=== PATIENT | female | born 1980 | race Caucasian/White ===

== ENCOUNTER → 2018-09-28 | Outpatient (CLI) | payer BC ==
[~2018-09-28] MED LIST: ACYCLOVIR 200200 MG PO; CIPROFLOXACIN500 M1 PO; FLOMAX0.4 MG PO; HUMIRA20 MG/0.4 SQ; HYDROCODON-ACE1 EAC7 PO; PREDNISONE50 MG PO; ZOFRAN4 MG PO
--- NOTE | 2018-09-28 18:08 | 2DMMODE ---
[place] [address] 2 D/M-MODE ECHOCARDIOGRAM Name: LIT DAILY Room: [facility]#: [id number] Admission: 09/28/18 Attend Phys: Margaux Gonzáles MD Discharge: Date of : 76 Date of Service: 09/28/18 1807 Report #: [id number] THIS REPORT FOR: //name// APPROVED REPORT Study performed: 09/28/2018 15:55:50 EXAM: Comprehensive 2D, Doppler, and color-flow Echocardiogram Patient Location: Out-Patient Status: routine BSA: 1.72 HR: 85 bpm BP: 120/70 mmHg Other Information Study Quality: Excellent Indications Peripheral Edema 2D Dimensions IVSd: 9.67 (7-11mm) LVOT Diam: 20.39 (18-24mm) LVDd: 49.36 mm PWd: 8.63 (7-11mm) Ascending Ao: 29.84 (22-36mm) LVDs: 34.58 (25-40mm) Aortic Root: 25.67 mm Volumes Left Atrial Volume (Systole) LA ESV Index: 17.00 mL/m2 Aortic Valve AoV Peak Shade.: 1.25 m/s AO Peak Gr.: 6.22 mmHg LVOT Max P.60 mmHg AO Mean Gr.: 3.45 mmHg LVOT Mean P.36 mmHg LVOT Max V: 0.81 m/s AO V2 VTI: 22.83 cm LVOT Mean V: 0.54 m/s CHRISTOPHER (VTI): 2.54 cm2 LVOT V1 VTI: 17.75 cm Mitral Valve E/A Ratio: 1.45 MV Decel. Time: 198.91 ms MV E Max Shade.: 0.85 m/s MV PHT: 57.68 [place] [address] 2 D/M-MODE ECHOCARDIOGRAM Name: LIT DAILY Room: [facility]#: [id number] Admission: 09/28/18 Attend Phys: Margaux Gonzáles MD Discharge: Date of : 76 Date of Service: 09/28/18 1807 Report #: [id number] MVA (PHT): 3.81 cm2 TDI E/Lateral E': 5.31 E/Medial E': 5.67 Medial E' Shade.: 0.15 m/s Lateral E' Shade.: 0.16 m/s Pulmonary Valve PV Peak Shade.: 0.85 m/s PV Peak Gr.: 2.87 mmHg Tricuspid Valve RAP Estimate: 5.00 mmHg TR Peak Gr.: 23.50 mmHg RVSP: 28.50 mmHg PA Pressure: 28.50 mmHg Left Ventricle The left ventricle is normal size. There is global hypokinesis of the left ventricle. There is normal left ventricular wall thickness. Left ventricular systolic function is mildly decreased. LVEF is 40-45%. The left ventricular diastolic function is normal. Right Ventricle The right ventricle is normal size. The right ventricular systolic function is normal. Atria The left atrium size is normal. The right atrium size is normal. Aortic Valve The aortic valve is normal in structure. No aortic regurgitation is present. There is no aortic valvular stenosis. Mitral Valve The mitral valve is normal in structure. Mild mitral regurgitation. No evidence of mitral valve stenosis. Tricuspid Valve The tricuspid valve is normal in structure. Mild tricuspid regurgitation. estimated pa pressure 30 mm Hg Pulmonic Valve The pulmonary valve is normal in structure. Mild pulmonic regurgitation[place] [address] 2 D/M-MODE ECHOCARDIOGRAM Name: LIT DAILY Room: [facility]#: [id number] Admission: 09/28/18 Attend Phys: Margaux Gonzáles MD Discharge: Date of : 76 Date of Service: 09/28/18 1807 Report #: [id number] The aortic root is normal in size. IVC is normal in size and collapses >50% with inspiration. Pericardium There is no pericardial effusion. <Conclusion> LVEF is 40-45%. There is global hypokinesis of the left ventricle. Mild mitral regurgitation. <ELECTRONICALLY SIGNED> By: Domenico Glass MD, FACC 09/28/181806 06 06 Domenico Glass MD, FAC /INF
== END ==
LOC: M.CRD 09-09 13:00
DX: I08.3 Combined rheumatic disorders of mitral, aortic and tricuspid valves (principal); R63.5 Abnormal weight gain

== ENCOUNTER → 2018-11-25 | Outpatient (CLI) | payer BC ==
--- NOTE | 2018-11-26 12:10 | CARDNUC ---
[place] [address] CARDIAC NUCLEAR IMAGING REPORT Name: LIT DAILY Room: [facility]#: [id number] Admission: 11/25/18 Attend Phys: Josafat Shepherd, Discharge: Date of : 76 Date of Service: 11/26/18 1209 Report #: [id number] THIS REPORT FOR: //name// APPROVED REPORT Imaging Protocol: Rest Tc-99m/Stress Tc-99m 1 day Study performed: 11/25/2018 12:30:00 Indication: left lower leg edema Patient Location: Out-Patient Stress Tech: Gunjan Patel Stress Nurse: Keshia Hawthorne RN NM Tech:JOSE Nassar Ht: 5 ft 6 in Wt: 141 lbs BSA: 1.72 m2 BMI: 22.75 Medical History Medical History: cardiomyopathy, hypertension Medications: lasix, kcl, carvedilol, losartan Allergies: flagyl, vancomycin Cardiac Risk Factors: hypertension Exercise History: Physically active Meds Held (24 hrs): carvedilol Resting Data Rest SPECT myocardial perfusion imaging was performed in supine position 30 minutes following the intravenous injection of 11.7 mCi of Tc-99m Sestamibi. Time of rest injection: 1245 Date: 11/25/2018 Time of rest imagin The images were gated to evaluate regional wall motion and calculate left ventricular ejection fraction. Administration Route: IV Administration Site: Right Hand Exercise Stress At peak stress, the patient was injected intravenously with 35.8mCi of Tc-99m Sestamibi. Time of stress injection: 1430 Time of stress imagin Administration Route: IV Administration Site: Right Hand Gated Stress SPECT was performed 30 [place] [address] CARDIAC NUCLEAR IMAGING REPORT Name: LIT DAILY Room: [facility]#: [id number] Admission: 11/25/18 Attend Phys: Josafat Shepherd, Discharge: Date of : 76 Date of Service: 11/26/18 1209 Report #: [id number] The images were gated to evaluate regional wall motion and calculate left ventricular ejection fraction. Prone imaging was performed. Stress Test Details Stress Test: Exercise stress testing was performed using a Clint protocol. HR Max Heart Rate (APMHR): 181 bpm Resting HR: 99 bpm Target HR (85% APMHR): 153 bpm Max HR Achieved: 170 bpm % of APMHR: 93 Recovery HR: 115 bpm HR response to stress: Normal HR response to stress BP Resting BP: 138/92 mmHg Max BP: 203/102 mmHg Recovery BP: 137/97 mmHg BP response to stress: Normal blood pressure response to stress. ECG Clinical Reason for Termination: Fatigue Study Quality Study: Fair Artifact: Severe Increased GI uptake Study Data At rest, the left ventricular ejection fraction was 65%.. Post stress, the left ventricular ejection was 71%.. SSS: 4 SRS: 0 SDS: 4 Perfusion Review of rest data reveals normal perfusion, without perfusion defects.Imaging obtained following vasodilator stress demonstrate a similar, uniform uptake of tracer without defects. LVEDV is normal.No segental wall motion abnormality seen.Prone images are normal.Rest images are marred by artifact. [place] [address] CARDIAC NUCLEAR IMAGING REPORT Name: LIT DAILY Room: [facility]#: [id number] Admission: 11/25/18 Attend Phys: Josafat Shepherd, Discharge: Date of : 76 Date of Service: 11/26/18 120 Report #: [id number] Nuclear Conclusion Clinical Findings: negative for ischemia Nuclear Findings: negative for ischemia Exercise Capacity: not assessed Left Ventricular Function: normal Risk Study: low Negative perfusion stress test for ischemia or infarct. <ELECTRONICALLY SIGNED> By: Josafat Shepherd MD, [facility] 11/26/18 1209 120 1209 Josafat Shepherd MD, FACC /INF
== END ==
LOC: M.NUC 10-14 12:48 → EDSTATUS 11-11 14:00 → M.NUC 11-11 14:00
DX: I42.8 Other cardiomyopathies (principal); I10 Essential (primary) hypertension